=== PATIENT | male | born 1950 | race Two or more races ===

== ENCOUNTER → 2021-03-01 | Day surgery (SDC) | payer MEDICARE ==
[~2021-03-01] VITALS: Ht 167.6 cm; Wt 68.0 kg
[~2021-03-01] MED LIST: IV RINGERS,LACTATED 1000ML 1,000 ML IV ONE; LIDOCAINE 2% PF 5 ML VIAL. ONE; PROPOFOL 10 MG/ML (20ML) VIAL. IV ONE
[2021-03-01 10:01] VITALS: BP 138/78
[2021-03-01 11:00] VITALS: BP 120/79
--- NOTE | 2021-03-02 01:27 | CONS ---
DATE OF CONSULTATION: 03/01/2021 REASON FOR CONSULTATION: Epigastric pain, nausea, vomiting and colorectal screening. HISTORY OF PRESENT ILLNESS: The patient denies any change in his bowel habits, diarrhea or constipation, has had no melena or hematochezia. There is no family history of colon cancer, but did not do his colon prep; and therefore, will not have a colonoscopy today. He does note persistent epigastric pain with nausea and emesis after eating. He describes the pain nasty ____. There is no dysphagia. With the continued reflux symptoms, EGD will be recommended to further assess his symptoms. PAST MEDICAL HISTORY: Prediabetes, GERD, depression. PAST SURGICAL HISTORY: He is status post appendectomy. ALLERGIES: None. MEDICATIONS: Unspecified blood pressure medicine. SOCIAL HISTORY: He is a social drinker, nonsmoker. FAMILY HISTORY: Otherwise, noncontributory. REVIEW OF SYSTEMS: Per records. PHYSICAL EXAMINATION: GENERAL: Reveals a thin male. VITAL SIGNS: Temperature 98.5, pulse 102, respiratory rate 18. HEENT: Reveals normocephalic, atraumatic head. Pupils and extraocular muscles are not tested. Sclerae are anicteric. NECK: Supple. LUNGS: Clear. CARDIAC: Reveals S1, S2 without S3, S4 or appreciable murmur. ABDOMEN: Reveals soft abdomen, normal bowel sounds ____ tenderness to deep palpation. EXTREMITIES: Reveals no cyanosis, clubbing or edema. IMPRESSION: Epigastric pain with nausea and vomiting with prediabetes. Differential includes peptic ulcer disease, malignancy, hiatal hernia, gastroparesis. We therefore, recommend the patient proceed with upper endoscopy today to further assess. Risks and benefits have been discussed with the patient. With the language barrier, unclear as to how much he understands, but he is willing to proceed. Colorectal screening would be recommended at a later date, but he did not proceed with his colonoscopy prep yesterday. Therefore, this will not be performed. I would like to thank Daphnie Carter, nurse practitioner, for allowing us to consult and participate in this patient's care. JANET DR: Hamilton TID: [id number] CC: Daphnie Carter NP
== END | disposition home or self-care (01) ==
LOC: SURG 09:36
PROVIDERS: ATTEND Internal Medicine Gastroenterology
DX: R10.13 Epigastric pain (principal); R11.2 Nausea with vomiting, unspecified; D49.0 Neoplasm of unspecified behavior of digestive system; K21.9 Gastro-esophageal reflux disease without esophagitis; K44.9 Diaphragmatic hernia without obstruction or gangrene; K29.50 Unspecified chronic gastritis without bleeding; K31.89 Other diseases of stomach and duodenum; F32.9 Major depressive disorder, single episode, unspecified; R73.03 Prediabetes; Z79.899 Other long term (current) drug therapy; Z98.890 Other specified postprocedural states
CPT/HCPCS: 43239; J2704

== ENCOUNTER → 2021-04-01 | Outpatient (CLI) | payer MEDICARE ==
[2021-03-01 11:00] VITALS: BP 120/79
[~2021-04-01] MED LIST changes: +CONTRAST GIVEN. MC PRN; +IOHEXOL 240 MG/ML 50ML VIAL. PO ONE; +IOHEXOL 300 MG/ML 100ML VIAL. IV ONE; -IV RINGERS,LACTATED 1000ML 1,000 ML IV ONE; -LIDOCAINE 2% PF 5 ML VIAL. ONE; -PROPOFOL 10 MG/ML (20ML) VIAL. IV ONE
--- NOTE | 2021-04-01 15:26 | RAD ---
CT of the chest, abdomen, and pelvis 04/01/2021 INDICATION: Gastric mass COMPARISON STUDY: None technique: Multidetector CT imaging of the chest, abdomen, and pelvis was perf ormed following the administration of IV contrast FINDINGS: Heart size is normal. No pericardial effusion is present. There is bulky mediastinal and bilateral hi lar adenopathy. There is no pneumothorax or pleural effusion. There is diffuse intralobular septal th ickening throughout the bilateral lungs with associated mild areas of groundglass opacification. Perla rity of septal thickening is smooth without significant nodular component. Mild dependent atelectasis is noted. No focal pulmonary mass is identified. 2 small hypodensities are noted in the left liver measuring 7 6 mm respectively. These are nonspecifi c. The liver is otherwise unremarkable. The gallbladder is unremarkable. The bilateral adrenal glands are unremarkable. Spleen is normal in size. The pancreas is unremarkable. There is bulky retroperito jessenia and periaortic adenopathy which encases the infrarenal abdominal aorta. More mild, intraperitone al mesenteric adenopathy is noted. There is no bowel obstruction. Posterior gastric wall appears mild ly thickened which is nonspecific given partially decompressed state. 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 IMPRESSION: 1.Extensive hilar and mediastinal adenopathy. Extensive retroperitoneal adenopathy. More mild intrape ritoneal adenopathy. Findings are concerning for lymphoma. 2. Possible posterior gastric wall thickening. Finding can be associated with lymphoma. Consider martita elation with endoscopy 3. Intralobular septal thickening and nodularity which appears to be relatively smooth the majority o f which does not have significant nodularity. Findings could represent edema however pulmonary lympho ma can rarely present with this appearance. Correlate with clinical findings. If there clinical reaso n to suspect edema consider post therapeutic short-term follow-up. High-resolution imaging may be hel pful.. CT DOSING PQRS STATEMENT: One or more of the following individualized dose reduction techniques were utilized for this examinat ion: 1. Automated exposure control 2. Adjustment of the mA and/or kV according to patient size 3. Use of iterative reconstruction technique Electronically signed by: Lion Raymond MD (04/01/2021 3:24 PM) [id number]
== END ==
LOC: CT 12:03
PROVIDERS: ATTEND Internal Medicine Gastroenterology
DX: D49.0 Neoplasm of unspecified behavior of digestive system (principal); R59.0 Localized enlarged lymph nodes; J98.11 Atelectasis
CPT/HCPCS: 71260; 74177; Q9966; Q9967